=== PATIENT | male | born 1970 | race African-American/Black ===

== ENCOUNTER 2019-03-07 10:31 | Emergency (ER) | payer MEDICAID, OTHER ==
[~2019-03-07] VITALS: Ht 180.3 cm; Wt 102.0 kg
[2019-03-07 11:03] VITALS: BP 131/87
--- NOTE | 2019-03-07 11:33 | NUR ---
first contact with pt. pt states "I have a back & an ear problem for 3 years ago" pt denies any other sx. pt's aox4. resps even and unlabored. pa at bedside to evaluate at this time.
--- NOTE | 2019-03-07 11:57 | NUR ---
Patient given discharge instructions and they have confirmed that they understand the instructions. Patient ambulatory with steady gait.
== END 2019-03-07 11:58 | disposition home or self-care (01) ==
LOC: ED 11:52
DX: S09.21XA Traumatic rupture of right ear drum, initial encounter (principal); M54.16 Radiculopathy, lumbar region; H91.91 Unspecified hearing loss, right ear; I10 Essential (primary) hypertension; W18.30XA Fall on same level, unspecified, initial encounter; Y93.89 Activity, other specified; Y92.89 Other specified places as the place of occurrence of the external cause; Y99.8 Other external cause status
CPT/HCPCS: 99283